=== PATIENT | male | born 1995 | race Caucasian/White ===

== ENCOUNTER 2017-06-08 14:43 | Emergency (ER) | payer BC ==
--- NOTE | 2017-06-08 14:50 | EDPHY ---
H & P Stated Complaint: R ABD PAIN/CONSTIPATION Time Seen by Provider: 06/08/17 14:50 - Personal History Current Tetanus/Diphtheria Vaccine: Yes - Medical/Surgical History Hx Asthma: No Hx Chronic Respiratory Disease: No Hx Diabetes: No Hx Cardiac Disease: No Hx Renal Disease: No Hx Cirrhosis: No Hx Alcoholism: No Hx HIV/AIDS: No Hx Splenectomy or Spleen Trauma: No Other PMH: BACK ISSUES - Social History Smoking Status: Never smoked Constitutional: Initial Vital Signs Temperature (C) 37.2 C 06/08/17 14:46 Heart Rate 84 06/08/17 14:46 Respiratory Rate 20 06/08/17 14:46 Blood Pressure 152/90 H 06/08/17 14:46 O2 Sat (%) 98 06/08/17 14:46 O2 Delivery Mode Room Air Allergies/Adverse Reactions: erythromycin base Allergy (Verified 06/08/17 14:46) Sulfa (Sulfonamide Antibiotics) Allergy (Verified 06/08/17 14:46) Home Medications: Medication Instructions Recorded NK [No Known Home Meds] 06/08/17 Medical Decision Making - Diagnostics Imaging Results: Imaging Impressions Abdomen X-Ray 06/08/17 15:01 Impression: 1. Normal supine abdomen study. Imaging: Discussed imaging studies w/ call center support representative Radiologist, I viewed and interpreted images myself ED Course/Re-evaluation: CHIEF COMPLAINT: Abdominal pain HISTORY OF PRESENT ILLNESS: This patient is a 22 y/o male complaining of abdominal pain. He reportedly consumed a large amount of alcohol and subsequently ate 3/4 of a pound of walnuts. He is concerned because he has not had a normal bowel movement since evening, three nights ago. Additionally, he states he has inserted writing implements into his rectum while intoxicated in the past, and is concerned there may be a remaining foreign body in place. He does not remember if this is the case, but is concerned his pain may be related to that. He denies any recent illness. No fever, melena, hematochezia, or other associated symptoms. REVIEW OF SYSTEMS: A 10 point review of systems was performed and is negative with the exception of the elements mentioned in the history of present illness. PHYSICAL EXAM: HR, BP, O2 Sat, RR. Temp noted General Appearance: Alert, well hydrated, appropriate, and non-toxic appearing. Head: Atraumatic without scalp tenderness or obvious injury Eyes: Pupils equal, round, reactive to light and accommodation, EOMI, no trauma , no injection. Ears: Clear bilaterally, no perforation, normal landmarks Nose: Atraumatic, no rhinorrhea, clear. Throat: There is no erythema or exudates, no lesions, normal tonsils, mucus membranes moist. Neck: Supple, nontender, no lymphadenopathy. Respiratory: No retractions, no distress, no wheezes, and no accessory muscle use. Lungs are clear to auscultation bilaterally. Cardiovascular: Regular rate and rhythm, no murmurs, rubs, or gallops. Good capillary refill all extremities. Gastrointestinal: Abdomen is soft, nontender, non-distended, no masses, no rebound, no guarding, no peritoneal signs. Rectal: Normal, no foreign body noted. Musculoskeletal: Normal active ROM of all extremities, atraumatic. Neurological: Alert, appropriate, and interactive. Nonfocal neuro exam. Skin: No rashes, good turgor, no nodules on palpation. Past medical history: Back pain. Past surgical history: Noncontributory Family history: Noncontributory Social history: Student. Single. [facility] in [facility]. DIFFERENTIAL DIAGNOSIS: The differential diagnosis for the patient's abdominal pain included but was not limited to constipation, foreign body, appendicitis, cholecystitis, hernias , testicular torsion, gastritis, and urinary tract infection. MEDICAL DECISION MAKIN22 y/o male presents with abdominal pain and constipation as well as concern for rectal foreign body. Plan for x-ray of abdomen/pelvis. 15:[address] Olguin, radiologist. Evidence of constipation. No evidence of foreign body noted. Performed rectal exam. This is negative for foreign body. Plan to discharge patient home in good condition. I recommended he try magnesium citrate and Fleet enemas at home for constipation relief. Follow up and return precautions discussed. He is comfortable with this plan. Departure - Departure Disposition: Home, Routine, Self-Care Clinical Impression: Constipation Qualifiers: Constipation type: unspecified constipation type Qualified Code(s): K59.00 - Constipation, unspecified Condition: Good Instructions: Constipation (ED) Additional Instructions: 1. Take magnesium citrate as directed on the bottle. 2. Use Fleet enemas as directed. 3. Follow up with your primary care physician for symptoms unresolved in 1-2 days. 4. Return to the emergency department for fever, worsening pain, uncontrollable vomiting or diarrhea, or other worsening of condition. Referrals: Corona Cabello MD [[facility] Primary Care Provider] - As per Instructions Report Scribed for: Ck Quick Report Scribed by: Corrina Atkinson Date of Report: 06/08/17 Time of Report: 15:55
[2017-06-08 16:16] VITALS: BP 143/73
== END 2017-06-08 16:15 | disposition home or self-care (01) ==
DX: K59.00 Constipation, unspecified (principal)